=== PATIENT | female | born 2000 | race Caucasian/White ===

== ENCOUNTER 2018-02-24 16:46 | Emergency (ER) | payer OTHER, MEDICAID ==
[~2018-02-24] VITALS: Ht 152.4 cm; Wt 66.7 kg
[~2018-02-24 16:46] MED LIST: CLARITIN10 MG PO; MEDROLDOSEPACK PO; NOHOMEMEDICATIONS; PROAIR HFA8.5 GM PO; PROVENTIL HFA6.7 G1 INH
[2018-02-24 17:19] LABS: ABSOLUTE EOSINOPHILS 0.1 thou/uL (0.0-0.7); ABSOLUTE LYMPHOCYTES 2.5 thou/uL (0.8-5.3); ABSOLUTE MONOCYTES 0.4 thou/uL (0.0-1.2); ABSOLUTE NEUTROPHILS 3.2 thou/uL (1.6-8.1); BASOPHILS 0.2 %; EOSINOPHILS 1.2 %; HEMATOCRIT 44.5 % (37.0-47.0); HEMOGLOBIN 14.7 gm/dL (12.0-15.0); LYMPHOCYTES 40.5 %; MCH 29.3 pg (26.0-34.0); MCHC 33.1 g/dL (28.0-37.0); MCV 88.5 fL (80.0-100.0); MPV 7.8 fl. (7.2-11.1); NUCLEATED RBCS 0 /100WBC; PLATELET COUNT* 310 thou/uL (150-400); POLYS 51.1 %; RBC 5.03 mil/uL (4.20-5.00); RDW-CV 12.9 % (10.5-14.5); WBC 6.3 thou/uL (4.0-11.0)
[2018-02-24 17:35] LABS: ANION GAP 9 mmol/L (7-16); BUN 12 mg/dL (7-18); CALCIUM 9.2 mg/dL (8.5-10.1); CHLORIDE 107 mmol/L (98-107); CO2 25 mmol/L (21-32); CREATININE 0.8 mg/dL (0.6-1.3); GLUCOSE 88 mg/dL (70-99); POTASSIUM 3.9 mmol/L (3.5-5.1); SODIUM 141 mmol/L (136-145)
[2018-02-24 17:51] LABS: ALBUMIN 3.7 g/dL (3.4-5.0); ALKALINE PHOSPHATASE 76 U/L (46-116); NT-PRO BRAIN NAT PEPTIDE 35 pg/mL (<300); SGOT 24 U/L (15-37); SGPT 39 U/L (30-65); TOTAL BILIRUBIN 0.3 mg/dL (<0.1-1.0); TOTAL PROTEIN 7.4 g/dL (6.4-8.2); TROPONIN-I LEVEL <0.06 ng/mL (<0.06)
[2018-02-24] MEDS ORDERED: MEDROL DOSPAK21 TA1 PO (18:51)
[2018-02-24 18:55] VITALS: BP 116/63
--- NOTE | 2018-02-27 11:05 | EKG ---
[place] [address] ELECTROCARDIOGRAM REPORT Name: TOM PRYOR [id number] Admission: 02/24/18 Attend Phys: Discharge: 02/24/18 Date of : [birth year] Report #: [id number] THIS REPORT FOR: //name// [facility] ED Test Date: 2018-02-24 Test Time: 16:49:35 Pat Name: TOM PRYOR Department: Room: Gender: F [employer] Induction: MASHA : 2000 Requested By: Shivam Hooks Order Number: [id number] MD: Michael Cross Measurements Intervals [place] Rate: 93 P: 32 AK: 147 QRS: -1 QRSD: 110 T: 21 QT: 356 QTc: 443 Interpretive Statements Sinus rhythm Probable left atrial enlargement Low voltage, precordial leads RSR' in V1 or V2, probably normal variant No previous ECG available for comparison Electronically Signed On 02-27-2018 11:05:00 CDT by Michael Cross [email or web address] <ELECTRONICALLY SIGNED> By: Michael Cross MD, [facility] 02/27/18 1105 1649 48 Michael Cross MD, FAC /EPI
== END 2018-02-24 18:55 | disposition home or self-care (01) ==
LOC: M.ERS 16:46
PROVIDERS: Emergency Medicine
DX: R06.00 Dyspnea, unspecified (principal); J45.909 Unspecified asthma, uncomplicated

== ENCOUNTER 2018-05-11 17:45 | Emergency (ER) | payer OTHER, MEDICAID ==
[~2018-05-11] VITALS: Ht 154.9 cm; Wt 77.1 kg
[~2018-05-11 17:45] MED LIST changes: +MEDROL DOSPAK21 TA1 PO
[2018-05-11] MEDS ORDERED: ACCUNEB SO1.25 MG/1 INH (17:52)
[2018-05-11 18:15] LABS: ABSOLUTE EOSINOPHILS 0.1 thou/uL (0.0-0.7); ABSOLUTE LYMPHOCYTES 2.2 thou/uL (0.8-5.3); ABSOLUTE MONOCYTES 0.5 thou/uL (0.0-1.2); BASOPHILS 0.7 %; EOSINOPHILS 1.1 %; HEMATOCRIT 44.8 % (37.0-47.0); HEMOGLOBIN 14.8 gm/dL (12.0-15.0); LYMPHOCYTES 31.6 %; MCH 28.6 pg (26.0-34.0); MCV 86.9 fL (80.0-100.0); MONOCYTES 7.8 %; MPV 8.3 fl. (7.2-11.1); NUCLEATED RBCS 0 /100WBC; PLATELET COUNT* 324 thou/uL (150-400); POLYS 58.8 %; RBC 5.16 mil/uL (4.20-5.00); WBC 6.8 thou/uL (4.0-11.0)
[2018-05-11 18:20] LABS: CALCIUM 8.7 mg/dL (8.5-10.1); POTASSIUM 3.5 mmol/L (3.5-5.1)
[2018-05-11 18:24] LABS: ALBUMIN 3.9 g/dL (3.4-5.0); TOTAL BILIRUBIN 0.6 mg/dL (<0.1-1.0); TOTAL PROTEIN 7.5 g/dL (6.4-8.2)
[2018-05-11 18:29] LABS: URINE BILIRUBIN NEGATIVE (Negative); URINE BLOOD NEGATIVE (Negative); URINE CLARITY CLEAR; URINE COLOR YELLOW; URINE GLUCOSE-RANDOM NEGATIVE (Negative); URINE KETONES TRACE (Negative); URINE LEUKOCYTES-REFLEX NEGATIVE (Negative); URINE NITRITE-REFLEX NEGATIVE (Negative); URINE PROTEIN NEGATIVE (Negative); URINE SPECIFIC GRAVITY <= 1.005 (1.005-1.030); URINE UROBILINOGEN 0.2 E.U./dl (0.2-1.0)
[2018-05-11 19:09] VITALS: BP 120/62
== END 2018-05-11 19:10 | disposition home or self-care (01) ==
LOC: M.ERS 17:45
PROVIDERS: Nurse Practitioner Family
DX: R51 Headache (principal); J45.909 Unspecified asthma, uncomplicated

== ENCOUNTER 2018-06-22 10:16 | Emergency (ER) | payer OTHER, MEDICAID ==
[~2018-06-22] VITALS: Ht 152.4 cm; Wt 80.3 kg
[~2018-06-22 10:16] MED LIST changes: +ACCUNEB SO1.25 MG/1 INH
[2018-06-22 10:50] LABS: ABSOLUTE EOSINOPHILS 0.1 thou/uL (0.0-0.7); ABSOLUTE LYMPHOCYTES 2.4 thou/uL (0.8-5.3); ABSOLUTE MONOCYTES 0.5 thou/uL (0.0-1.2); ABSOLUTE NEUTROPHILS 4.7 thou/uL (1.6-8.1); BASOPHILS 0.5 %; HEMOGLOBIN 14.3 gm/dL (12.0-15.0); LYMPHOCYTES 30.8 %; MCH 28.5 pg (26.0-34.0); MCHC 33.3 g/dL (28.0-37.0); MCV 85.4 fL (80.0-100.0); MONOCYTES 6.6 %; MPV 7.8 fl. (7.2-11.1); NUCLEATED RBCS 0 /100WBC; PLATELET COUNT* 313 thou/uL (150-400); POLYS 61.1 %; RBC 5.03 mil/uL (4.20-5.00); RDW-CV 13.4 % (10.5-14.5); WBC 7.7 thou/uL (4.0-11.0)
[2018-06-22 10:57] LABS: ANION GAP 9 mmol/L (7-16); BUN 14 mg/dL (7-18); CALCIUM 8.8 mg/dL (8.5-10.1); CHLORIDE 105 mmol/L (98-107); CO2 26 mmol/L (21-32); CREATININE 0.7 mg/dL (0.6-1.3); GLUCOSE 91 mg/dL (70-99); POTASSIUM 3.8 mmol/L (3.5-5.1); SODIUM 140 mmol/L (136-145)
[2018-06-22 11:05] LABS: ALBUMIN 3.6 g/dL (3.4-5.0); ALKALINE PHOSPHATASE 69 U/L (46-116); SGOT 15 U/L (15-37); SGPT 21 U/L (30-65); TOTAL BILIRUBIN 0.4 mg/dL (<0.1-1.0); TOTAL PROTEIN 7.1 g/dL (6.4-8.2); TROPONIN-I LEVEL <0.06 ng/mL (<0.06)
[2018-06-22 11:07] LABS: URINE BILIRUBIN NEGATIVE (Negative); URINE BLOOD TRACE (Negative); URINE CLARITY CLEAR; URINE COLOR YELLOW; URINE GLUCOSE-RANDOM NEGATIVE (Negative); URINE KETONES NEGATIVE (Negative); URINE LEUKOCYTES-REFLEX NEGATIVE (Negative); URINE NITRITE-REFLEX NEGATIVE (Negative); URINE PROTEIN NEGATIVE (Negative); URINE SPECIFIC GRAVITY >= 1.030 (1.005-1.030); URINE UROBILINOGEN 0.2 E.U./dl (0.2-1.0)
[2018-06-22 11:12] LABS: AMP/METHAMP Negative (Negative); BARBITURATES Negative (Negative); BENZODIAZEPINES Negative (Negative); COCAINE Negative (Negative); METHADONE Negative (Negative); OPIATES Negative (Negative); PCP Negative (Negative); THC POSITIVE (Negative)
[2018-06-22] MEDS ORDERED: PEPCID20 MG PO (11:33)
[2018-06-22] MEDS ORDERED: PHENERGAN 25 MG25 M1 PO (11:33)
[2018-06-22 11:52] VITALS: BP 121/72
--- NOTE | 2018-06-22 16:22 | EKG ---
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 ROMO : 2000 Requested By: Soco Richardson Order Number: [id number] MD: Didier Urbano Measurements Intervals [place] Rate: 73 P: 33 CT: 144 QRS: 12 QRSD: 113 T: 26 QT: 386 QTc: 426 Interpretive Statements Sinus rhythm Atrial premature complex Borderline intraventricular conduction delay Compared to ECG 02/24/2018 16:49:35 Atrial premature complex(es) now present Electronically Signed On 06-22-2018 16:22:43 ACCOUNT EXECUTIVE KEY ACCOUNTS by Didier Urbano [email or web address] <ELECTRONICALLY SIGNED> By: Didier Urbano MD, [facility] 06/22/18 1622 1022 102 Didier Urbano MD, [facility] /EPI
== END 2018-06-22 11:53 | disposition home or self-care (01) ==
LOC: M.ERS 10:16
PROVIDERS: Physician Assistant
DX: R07.89 Other chest pain (principal); R63.0 Anorexia; J45.909 Unspecified asthma, uncomplicated; Z79.899 Other long term (current) drug therapy

== ENCOUNTER 2018-12-24 20:06 | Emergency (ER) | payer OTHER, MEDICAID ==
[~2018-12-24] VITALS: Ht 152.4 cm; Wt 71.7 kg
[~2018-12-24 20:06] MED LIST changes: +PEPCID20 MG PO; +PHENERGAN 25 MG25 M1 PO
[2018-12-24 20:41] LABS: ABSOLUTE EOSINOPHILS 0.1 thou/uL (0.0-0.7); ABSOLUTE LYMPHOCYTES 3.1 thou/uL (0.8-5.3); ABSOLUTE MONOCYTES 0.8 thou/uL (0.0-1.2); ABSOLUTE NEUTROPHILS 6.2 thou/uL (1.6-8.1); BASOPHILS 0.4 %; HEMATOCRIT 42.4 % (37.0-47.0); HEMOGLOBIN 14.2 gm/dL (12.0-15.0); LYMPHOCYTES 30.4 %; MCH 28.9 pg (26.0-34.0); MCHC 33.5 g/dL (28.0-37.0); MCV 86.5 fL (80.0-100.0); MONOCYTES 7.7 %; MPV 7.4 fl. (7.2-11.1); NUCLEATED RBCS 0 /100WBC; PLATELET COUNT* 337 thou/uL (150-400); POLYS 60.5 %; RDW-CV 13.5 % (10.5-14.5); WBC 10.3 thou/uL (4.0-11.0)
[2018-12-24 20:47] LABS: CALCIUM 9.2 mg/dL (8.5-10.1); CREATININE 0.9 mg/dL (0.6-1.3); POTASSIUM 3.3 mmol/L (3.5-5.1)
[2018-12-24 20:52] LABS: ALBUMIN 3.4 g/dL (3.4-5.0); TOTAL BILIRUBIN 0.3 mg/dL (<0.1-1.0); TOTAL PROTEIN 6.9 g/dL (6.4-8.2)
[2018-12-24] MEDS ORDERED: VENTOLIN HFA 1818 GM INH (21:09)
[2018-12-24 21:22] VITALS: BP 123/75
== END 2018-12-24 21:22 | disposition home or self-care (01) ==
LOC: M.ERS 20:06
PROVIDERS: Nurse Practitioner Family
DX: F41.9 Anxiety disorder, unspecified (principal); J45.909 Unspecified asthma, uncomplicated

== ENCOUNTER 2019-06-04 20:49 | Emergency (ER) | payer OTHER ==
[~2019-06-04] VITALS: Ht 152.4 cm; Wt 68.0 kg
[~2019-06-04 20:49] MED LIST changes: +VENTOLIN HFA 1818 GM INH
[2019-06-04 21:25] LABS: URINE BILIRUBIN NEGATIVE (Negative); URINE BLOOD TRACE (Negative); URINE CLARITY CLEAR; URINE COLOR YELLOW; URINE GLUCOSE-RANDOM NEGATIVE (Negative); URINE KETONES NEGATIVE (Negative); URINE LEUKOCYTES-REFLEX NEGATIVE (Negative); URINE NITRITE-REFLEX NEGATIVE (Negative); URINE PROTEIN NEGATIVE (Negative); URINE UROBILINOGEN 0.2 E.U./dl (0.2-1.0)
[2019-06-04 21:31] LABS: AMP/METHAMP Negative (Negative); BARBITURATES Negative (Negative); BENZODIAZEPINES Negative (Negative); COCAINE Negative (Negative); METHADONE Negative (Negative); OPIATES Negative (Negative); PCP Negative (Negative); THC Negative (Negative)
[2019-06-04 22:05] LABS: ABSOLUTE EOSINOPHILS 0.1 thou/uL (0.0-0.7); ABSOLUTE LYMPHOCYTES 3.6 thou/uL (0.8-5.3); ABSOLUTE MONOCYTES 0.5 thou/uL (0.0-1.2); ABSOLUTE NEUTROPHILS 3.3 thou/uL (1.6-8.1); BASOPHILS 0.5 %; EOSINOPHILS 1.3 %; HEMATOCRIT 41.3 % (37.0-47.0); HEMOGLOBIN 13.9 gm/dL (12.0-15.0); MCH 29.1 pg (26.0-34.0); MCHC 33.7 g/dL (28.0-37.0); MCV 86.6 fL (80.0-100.0); MONOCYTES 6.7 %; MPV 7.7 fl. (7.2-11.1); NUCLEATED RBCS 0 /100WBC; PLATELET COUNT* 279 thou/uL (150-400); POLYS 43.5 %; RBC 4.77 mil/uL (4.20-5.00); RDW-CV 13.4 % (10.5-14.5); WBC 7.5 thou/uL (4.0-11.0)
[2019-06-04 22:13] LABS: CALCIUM 9.3 mg/dL (8.5-10.1); CREATININE 0.8 mg/dL (0.6-1.3); POTASSIUM 3.3 mmol/L (3.5-5.1)
[2019-06-04 22:17] LABS: ALBUMIN 3.5 g/dL (3.4-5.0); TOTAL BILIRUBIN 0.2 mg/dL (<0.1-1.0); TOTAL PROTEIN 6.8 g/dL (6.4-8.2)
[2019-06-04] MEDS ORDERED: HYDROCODON-ACE1 EAC8 PO (23:41)
[2019-06-04] MEDS ORDERED: ZOFRAN ODT4 MG PO (23:41)
[2019-06-04 23:55] VITALS: BP 103/68
== END 2019-06-04 23:55 | disposition home or self-care (01) ==
LOC: M.ERS 20:49
PROVIDERS: Emergency Medicine
DX: K52.9 Noninfective gastroenteritis and colitis, unspecified (principal); J45.909 Unspecified asthma, uncomplicated; Z79.899 Other long term (current) drug therapy

== ENCOUNTER 2019-06-23 11:10 | Emergency (ER) | payer OTHER ==
[~2019-06-23] VITALS: Ht 154.9 cm; Wt 71.7 kg
[~2019-06-23 11:10] MED LIST changes: +HYDROCODON-ACE1 EAC8 PO; +ZOFRAN ODT4 MG PO
[2019-06-23 12:23] VITALS: BP 122/68
== END 2019-06-23 12:24 | disposition home or self-care (01) ==
LOC: M.ERS 11:10
DX: S61.211A Laceration without foreign body of left index finger without damage to nail, initial encounter (principal); J45.909 Unspecified asthma, uncomplicated; W26.8XXA Contact with other sharp object(s), not elsewhere classified, initial encounter; Y93.89 Activity, other specified; Y92.89 Other specified places as the place of occurrence of the external cause; Y99.8 Other external cause status

== ENCOUNTER 2019-07-20 14:48 | Emergency (ER) | payer OTHER ==
[~2019-07-20] VITALS: Ht 152.4 cm; Wt 70.8 kg
[2019-07-20 14:55] VITALS: BP 130/76
[2019-07-20] MEDS ORDERED: IRON325 M1 PO (15:02)
[2019-07-20] MEDS ORDERED: LIDODERM1 EACH TOP (16:30)
[2019-07-20] MEDS ORDERED: NAPROSYN500 MG PO (16:30)
== END 2019-07-20 16:39 | disposition home or self-care (01) ==
LOC: M.ERS 14:48
DX: S16.1XXA Strain of muscle, fascia and tendon at neck level, initial encounter (principal); J45.909 Unspecified asthma, uncomplicated; V49.49XA Driver injured in collision with other motor vehicles in traffic accident, initial encounter; Y93.89 Activity, other specified; Y92.481 Parking lot as the place of occurrence of the external cause; Y99.8 Other external cause status

== ENCOUNTER 2019-07-24 13:27 | Emergency (ER) | payer OTHER ==
[~2019-07-24] VITALS: Ht 154.9 cm; Wt 70.8 kg
[~2019-07-24 13:27] MED LIST changes: +IRON325 M1 PO; +LIDODERM1 EACH TOP; +NAPROSYN500 MG PO
[2019-07-24] MEDS ORDERED: L-LYSINE500 M1 PO (13:35)
[2019-07-24] MEDS ORDERED: MONOLAURIN (13:35)
[2019-07-24 14:54] LABS: INFLUENZA A ANTIGEN Negative (Negative); INFLUENZA B ANTIGEN Negative (Negative)
[2019-07-24] MEDS ORDERED: PREDNISONE 10 M10 MG PO (15:13)
[2019-07-24] MEDS ORDERED: ZPAK PO (15:13)
[2019-07-24] MEDS ORDERED: VENTOLIN HFA 1818 GM INH (15:13)
[2019-07-24 15:24] VITALS: BP 129/76
== END 2019-07-24 15:26 | disposition home or self-care (01) ==
LOC: M.ERS 13:27
PROVIDERS: Nurse Practitioner Family
DX: J20.9 Acute bronchitis, unspecified (principal); J21.9 Acute bronchiolitis, unspecified; J45.909 Unspecified asthma, uncomplicated

== ENCOUNTER 2021-03-01 02:53 | Emergency (ER) | payer OTHER, MEDICAID ==
[~2021-03-01] VITALS: Ht 152.4 cm; Wt 74.8 kg
[~2021-03-01 02:53] MED LIST changes: +L-LYSINE500 M1 PO; +MONOLAURIN; +PREDNISONE 10 M10 MG PO; +ZPAK PO
[2021-03-01] MEDS ORDERED: FLEXERIL PO (04:39)
[2021-03-01 05:00] VITALS: BP 104/63
== END 2021-03-01 05:00 | disposition home or self-care (01) ==
LOC: M.ERS 02:53
DX: M62.838 Other muscle spasm (principal); J45.909 Unspecified asthma, uncomplicated

== ENCOUNTER 2021-05-04 03:04 | Emergency (ER) | payer OTHER, MEDICAID ==
[~2021-05-04] VITALS: Ht 152.4 cm; Wt 79.4 kg
[~2021-05-04 03:04] MED LIST changes: +FLEXERIL PO
[2021-05-04 03:40] LABS: URINE BLOOD 3+ (Negative); URINE CLARITY SL CLOUDY; URINE GLUCOSE-RANDOM NEGATIVE (Negative); URINE KETONES TRACE (Negative); URINE LEUKOCYTES 2+ (Negative); URINE NITRITE POSITIVE (Negative); URINE PROTEIN 2+ (Negative); URINE SPECIFIC GRAVITY 1.025 (1.005-1.030); URINE UROBILINOGEN 0.2 E.U./dl (0.2-1.0)
[2021-05-04 03:41] LABS: URINE BILIRUBIN 1+ (Negative); URINE COLOR PINK
[2021-05-04 03:47] LABS: BACTERIA >30 Many /HPF (None Seen); CRYSTALS None Seen /LPF (None Seen); MUCUS 4-6 Moderate strn/LPF (None Seen); SQUAMOUS 4-10 Moderate /LPF (0-3); URINE RBC >20 Many /HPF (0-2); URINE WBC >25 Many /HPF (0-5); WBC CASTS 0-3 /LPF; WBC CLUMPS Few (None Seen)
[2021-05-04 03:48] LABS: ICTOTEST (BILI CONFIRMATORY) Negative (Negative)
[2021-05-04] MEDS ORDERED: CEPHALEXIN500 MG PO (04:44)
[2021-05-04 05:05] VITALS: BP 128/89
== END 2021-05-04 05:08 | disposition home or self-care (01) ==
LOC: M.ERS 03:04
PROVIDERS: Personal Emergency Response Attendant
DX: F41.9 Anxiety disorder, unspecified (principal); Z20.822 Contact with and (suspected) exposure to COVID-19; N39.0 Urinary tract infection, site not specified; R45.851 Suicidal ideations; J45.909 Unspecified asthma, uncomplicated; Z79.51 Long term (current) use of inhaled steroids; Z87.891 Personal history of nicotine dependence

== ENCOUNTER 2021-07-12 22:19 | Emergency (ER) | payer OTHER, MEDICAID ==
[~2021-07-12] VITALS: Ht 157.5 cm; Wt 74.8 kg
[~2021-07-12 22:19] MED LIST changes: +CEPHALEXIN500 MG PO
[2021-07-12 23:11] LABS: INFLUENZA A ANTIGEN Negative (Negative); INFLUENZA B ANTIGEN Negative (Negative)
[2021-07-12 23:19] VITALS: BP 122/72
== END 2021-07-12 23:20 | disposition home or self-care (01) ==
LOC: M.ERS 22:19
PROVIDERS: Emergency Medicine
DX: J06.9 Acute upper respiratory infection, unspecified (principal); Z20.822 Contact with and (suspected) exposure to COVID-19; J45.909 Unspecified asthma, uncomplicated; F41.9 Anxiety disorder, unspecified; Z87.891 Personal history of nicotine dependence

== ENCOUNTER 2021-07-16 10:56 | Emergency (ER) | payer OTHER, MEDICAID ==
[~2021-07-16] VITALS: Ht 157.5 cm; Wt 74.4 kg
[2021-07-16] MEDS ORDERED: TOBRAMYCIN SULFA5 M1 EA. EYE ×2 (12:14→17:06)
[2021-07-16 12:19] VITALS: BP 114/68
[2021-07-16] MEDS ORDERED: TOBRAMYCIN SULFA5 M1 OPHTHALMIC (17:05)
== END 2021-07-16 12:20 | disposition home or self-care (01) ==
LOC: M.ERS 10:56
DX: H10.33 Unspecified acute conjunctivitis, bilateral (principal); J45.909 Unspecified asthma, uncomplicated; F41.9 Anxiety disorder, unspecified; Z87.891 Personal history of nicotine dependence